=== PATIENT | female | born 1935 | race Caucasian/White ===

== ENCOUNTER 2016-02-21 15:17 | Emergency (ER) | payer MEDICARE ==
[2016-02-21 15:43] LABS: #Basophils 0.2 thou/uL (0.0-0.2); #Eosinphils 0.1 thou/uL (0.0-0.7); #Lymphocytes 2.9 thou/uL (1.20-3.40); #Monocytes 1.1 thou/uL (0.11-0.59); #Neutrophils 8.4 thou/uL (1.40-6.50); %Basophils 1.5 % (0.0-1.0); %Eosinophils 0.6 % (0.0-10.0); %Monocytes 8.4 % (0.0-10.0); Hematocrit 45.6 % (36.0-47.0); Mean Platelet Volume 7.4 fL (7.4-10.4); Red Blood Cell (RBC) Count 4.64 mill/uL (4.20-5.40); White Blood Cell (WBC) Count 12.6 thou/uL (4.8-10.8)
[2016-02-21] MEDS ORDERED: methylPREDNISolone Sod Succ/PF 125 MG/2 ML VIAL ONE (15:50)
[2016-02-21 15:52] LABS: ALT (SGPT) 25 U/L (0-55); AST (SGOT) 22 U/L (5-34); Alkaline Phosphatase 99 U/L (40-150); Anion Gap 14 mmol/L (10-20); BUN (Urea Nitrogen) 13 mg/dL (9.8-20.1); Bilirubin, Total 0.3 mg/dL (0.2-1.2); Calc. Creatinine Clearance 0 mL/min (70-130); Calcium 9.8 mg/dL (7.8-10.44); Carbon Dioxide 27 mmol/L (23-31); Chloride 102 mmol/L (98-107); Estimated GFR-MDRD 66; Globulin 2.8 g/dL (2.4-3.5); Protein, Total 7.4 g/dL (5.8-8.1)
[2016-02-21 15:57] LABS: Troponin I Less than 0.010 ng/mL (< 0.028)
[2016-02-21 16:08] LABS: PTT 27.9 SEC (22.9-36.1)
[2016-02-21 16:09] LABS: Prothrombin Time 11.5 SEC (12.0-14.7)
--- NOTE | 2016-02-21 16:35 | RAD ---
PORTABLE CHEST: Date: 02-21-16 An AP portable film at 1528 is compared with a 07-14-15 study. FINDINGS: The lungs are clear today. No infiltrate or effusion was seen. The heart size is normal. The vasc ulature appears normal. IMPRESSION: No acute findings. POS: HOME
[2016-02-21 17:56] LABS: Troponin I Less than 0.010 ng/mL (< 0.028)
[2016-02-21 18:09] LABS: Bilirubin Negative (Negative); Blood, Urine Negative (Negative); Glucose, Urine (Dipstick) Negative (Negative); Ketone, Urine Negative (Negative); Nitrite Negative (Negative); Protein, Urine (Dipstick) Negative (Neg-Trace); Urobilinogen 0.2 mg/dL (0.2-1.0)
[2016-02-21 18:10] LABS: Bacteria/HPF None Seen HPF (None Seen); RBC/HPF None Seen HPF (0-3); Squamous Epithelial 0-3 HPF (0-3); WBC/HPF None Seen HPF (0-3)
--- NOTE | 2016-02-21 18:31 | ERRECORD ---
[facility] EMERGENCY RECORD HPI COPD (15:49 DHAM) CHIEF COMPLAINT: Patient presents for evaluation of dyspnea, Patient presents for evaluation of wheezing. HISTORIAN: History provided by patient, Pt started with increased cough and mild shortness of breath 24 hours ago. She ate quickly and went into Dr. Mane's office hoping to get an antibiotic and go home. She c/o mild chest discomfort for about 10 minutes prior to arrival so she was sent to us for further evaluation. No fever or chills just increased sputum and increased cough with this episode of chest pain prior to arriving at her pcp office. Dr. Mane did call to give us report. LOCATION: Symptoms are localized, most severe to bilat upper chest. QUALITY: Symptoms described as tightness, Symptoms described as wheezing. SEVERITY: Currently there are no symptoms. TIME COURSE: Gradual onset of symptoms, 24 hours for the increased sob and 15 minutes for the chest discomfort., Symptoms are worsening. ASSOCIATED WITH: Associated with chest pain, currently resolved, Associated with cough, productive, No associated fever, No associated increased inhaler use, Associated with upper respiratory infection, for 1 day, Associated with history of chronic obstructive pulmonary disease, I used my albuterol inhaler last night as usual but no more than usual. EXACERBATED BY: Patient's condition exacerbated by nothing. RELIEVED BY: Patient's condition relieved by nothing, Patient's condition not relieved by inhaler use, Patient's condition relieved by nothing because patient has not tried anything for relief. RISK FACTORS: No pulmonary embolism risk factors, Coronary artery disease risk factors, include high cholesterol, include hypertension, include smoking, Thoracic aortic dissection risk factors, include hypertension. ROS (15:49 DHAM) CONSTITUTIONAL: Historian denies chills, denies fever, denies malaise, denies night sweats, denies weakness. EYES: Negative eye review of systems. ENT: Negative ears, nose, throat review of systems. CARDIOVASCULAR: Historian reports chest pain, upper, no radiation, Historian denies diaphoresis, reports dyspnea on exertion, denies edema, reports exercise intolerance. no jugular venous distention, Historian denies orthopnea, denies paroxysmal nocturnal dyspnea, denies syncope, denies palpitations. RESPIRATORY: Historian reports cough, reports shortness of breath, reports sputum, reports wheezing. the sob is a bit worse as is the cough. She daily produces sputum and this hasn't really changed. GI: Negative gastrointestinal review of systems, Historian denies &a-1R&a+25V*p+0X*d6410H*c202B*c15G*c2P*p-0X&a-25V&a+1R Name: Haleigh Schuster : 1935 F80 MedRec: [id number] AcctNum: [id number] Prepared: Mary Feb 21, 2016 20:10 by Interface Page 1 of 5 pMD [facility] EMERGENCY RECORD abdominal pain. MUSCULOSKELETAL: Negative musculoskeletal review of systems. SKIN: Negative skin review of systems. NEUROLOGIC: Negative neurologic review of systems, Historian denies confusion, denies focal weakness, denies gait changes. ENDOCRINE: Negative endocrine review of systems. HEMO/LYMPHATIC: Normal hematologic/lymphatic system review. ALLERGIC/IMMUNOLOGIC: Historian reports environmental allergies, denies frequent infections. PSYCHIATRIC: Historian denies alcohol abuse, denies anxiety, denies depression. PAST MEDICAL HISTORY MEDICAL HISTORY: Past medical history includes endocrine disease, hypothyroidism, Past medical history includes history of hypertension, pulmonary disease. (15:43 ASAH) FEMALE SURGICAL HISTORY: Surgical history of hysterectomy, Surgical history of tonsillectomy. (15:44 ASAH) PSYCHIATRIC HISTORY: Psychiatric history includes, anxiety. (15:44 ASAH) SOCIAL HISTORY: Patient denies alcohol use, Patient denies drug use, Patient currently uses tobacco, smokes cigarettes, daily, Patient smokes 1.5 packs per day. (15:45 ASAH) NOTES: I have reviewed the nursing documentation regarding PMHX, social hx, family hx, and surgical history as well as vitals and triage notes and agree. (16:03 DHA) KNOWN ALLERGIES Sulfa (Sulfonamide Antibiotics) CURRENT MEDICATIONS levothyroxine: TABLET : Strength - 75 mcg : ORAL Patient Dose: 1 tab(s) Oral once a day. (15:40 LGIB) fluticasone: SPRAY, SUSPENSION : Strength - 50 mcg : NASAL Patient Dose: Unknown. (15:40 LGIB) amLODIPine: TABLET : Strength - 2.5 mg : ORAL Patient Dose: 1 tab(s) Oral once a day. (15:40 LGIB) atorvastatin: TABLET : Strength - 10 mg : ORAL Patient Dose: 1 tab(s) Oral once a day. (15:40 LGIB) carvedilol: TABLET : Strength - 6.25 mg : ORAL Patient Dose: 1 tab(s) Oral 2 times a day. (15:41 LGIB) Ventolin HFA: HFA AEROSOL WITH ADAPTER (GRAM) : Strength - 90 mcg : INHALATION &a-1R&a+25V*p+0X*r3518V*c202B*c15G*c2P*p-0X&a-25V&a+1R Name: Haleigh Schuster : 1935 F80 MedRec: [id number] AcctNum: [id number] Prepared: Mary Feb 21, 2016 20:10 by Interface Page 2 of 5 pMD [facility] EMERGENCY RECORD Patient Dose: 2 puff(s) Inhaler As Needed. (15:41 LGIB) Budeprion SR: TABLET, EXTENDED RELEASE : Strength - 150 mg : ORAL Patient Dose: 1 tab(s) Oral 2 times a day. (15:42 LGIB) VITAL SIGNS VITAL SIGNS: BP: 144/99, Pulse: 77, Resp: 22, Pain: 0, O2 sat: 95 on Room Air, Time: 02/21/2016 15:30. (15:30 LGIB) Temp: 98.2 (Oral), Time: 02/21/2016 15:35. (15:35 LGIB) BP: 188/87, Pulse: 60, Resp: 20 (Non-Labored), Pain: 0, O2 sat: 96 on Room Air, Time: 02/21/2016 16:42. (16:42 LGIB) BP: 173/96, Pulse: 64, Resp: 22, Time: 02/21/2016 16:59. (16:59 ASAH) PHYSICAL EXAM (15:49 DHAM) CONSTITUTIONAL: Vital Signs Reviewed, Patient afebrile, Pulse normal, Blood pressure normal, Respiratory rate normal, Normal pulse oximetry, Patient appears non toxic, Patient appears pain free, Patient alert and oriented to person, place and time, Nursing notes reviewed. HEAD: Head exam normal, Head exam included findings of head atraumatic. EYES: Eye exam included findings of eyelids normal to inspection, Pupils equally round and reactive to light, Extraocular muscles intact, Conjunctiva normal. ENT: Ear exam normal, external ear normal, tympanic membranes normal, no drainage, Nose exam normal, no nasal deformity, no nasal congestion or rhinorrhea, Pharynx exam normal, Uvula exam normal, Tonsil exam normal, teeth normal. NECK: Neck exam normal, Neck exam included findings of normal range of motion, Thyroid normal, no jugular venous distention, no cervical adenopathy. RESPIRATORY CHEST: Respiratory exam included findings of no respiratory distress, Wheezing present, diffusely, No rales, No rhonchi, Breath sounds diminished, Chest exam included findings of chest movement symmetrical, Chest expansion equal, no tenderness, wheezing is only heard with forced expiration and breath sounds are diffusely decreased and she has a prolonged expiratory phase. CARDIOVASCULAR: Cardiovascular exam included findings of heart rate regular rate and rhythm, Heart sounds normal, Point of maximal impulse normal. ABDOMEN MALE: Abdominal exam included findings of abdomen nontender, Bowel sounds normal, Liver normal, Spleen normal, no distension, no mass, no peritoneal signs. UPPER EXTREMITY: Upper extremity exam normal, Radial pulse normal. LOWER EXTREMITY: Lower extremity exam included findings of inspection normal, Range of motion normal, Motor strength normal, Sensation intact, Pedal pulse normal, Easton's negative, no edema, no calf tenderness, no palpable cords. &a-1R&a+25V*p+0X*[id number]*c202B*c15G*c2P*p-0X&a-25V&a+1R Name: Haleigh Schuster : 1935 F80 MedRec: [id number] AcctNum: [id number] Prepared: Mary Feb 21, 2016 20:10 by Interface Page 3 of 5 pMD [facility] EMERGENCY RECORD NEURO: [place] coma scale 15, Neuro exam findings include patient oriented to person, place and time, Speech normal, Gait normal, Cranial nerves intact. SKIN: Skin exam included findings of skin warm, dry, and normal in color, no rash. PSYCHIATRIC: Psychiatric exam included findings of patient oriented to person place and time, Normal affect, Judgment normal, Insight normal. EKG INTERPRETATION (15:31 DHAM) 12 LEAD EKG INTERPRETATION: 12 lead EKG interpreted by Emergency Department Physician at time of study, 12 lead EKG shows normal sinus rhythm, Rate (beats per minute): 67, with no ectopics, No previous EKG available for comparison, Conduction with, incomplete right bundle branch block, ST segments normal, T waves normal, [place] normal. RADIOLOGYINTERPRETATION (15:49 DHAM) CHEST: Chest films negative, no infiltrates, no pneumothorax, no hemothorax, no masses, no cardiomegaly, no congestive heart failure, no effusion, no free air, flattened diaphragms bilat. MEDICATION ADMINISTRATION SUMMARY Drug Name: DuoNeb, Dose Ordered: 3 mL, Route: Nebulize, Status: Given, Time: 15:59 02/21/2016, Drug Name: Solu-MEDROL intravenous, Dose Ordered: 125 mg, Route: IV Push, Status: Given, Time: 15:59 02/21/2016, Detailed record available in Medication Service section. DOCTOR NOTES TEXT: Pt has had no further cp and feels comfortable that she just has a cold wants an antibiotic and to go home. see [facility]. (18:02 DHAM) wells is 0 and heart score is 4. will have her follow up quickly with her pcp. see [facility]. (18:07 DHAM) PROBLEM LIST No recorded problems DIAGNOSIS (18:04 DHAM) FINAL: PRIMARY: copd exacerbation, ADDITIONAL: atypical chest pain. PRESCRIPTION (18:04 DHAM) Augmentin: TABLET : 875 mg-125 mg : ORAL : Quantity: 1 Unit: tab(s) Route: ORAL Schedule: 2 times a day (with meals) Dispense: 20 Unit: tab(s) May substitute. Refills: No Refills . NOTES: No refills. &a-1R&a+25V*p+0X*x1384Y*c202B*c15G*c2P*p-0X&a-25V&a+1R Name: Haleigh Schuster : 1935 F80 MedRec: [id number] AcctNum: [id number] Prepared: SatFeb 21, 2016 20:10 by Interface Page 4 of 5 pMD [facility] EMERGENCY RECORD predniSONE oral: TABLET : 20 mg : ORAL : Quantity: 2 Unit: tab(s) Route: ORAL Schedule: once a day (after a meal) Dispense: 10 Unit: tab(s) May substitute. Refills: No Refills . NOTES: 2 each day for 5 days No refills. DISPOSITION PATIENT: Disposition Type: Discharge, Disposition: *Discharge Home. (18:04 [facility]) Patient left the department. (18:24 [facility]) Sanchez: [facility]=KACIE Carias, May [facility]=MD Xenia, Julito [facility]=KACIE Gonzales, Iza &a-1R&a+25V*p+0X*r1209F*c202B*c15G*c2P*p-0X&a-25V&a+1R Name: Haleigh Schuster : 1935 F80 MedRec: [id number] AcctNum: [id number] Prepared: Mary Feb 21, 2016 20:10 by Interface Page 5 of 5 pMD [facility]TDD
--- NOTE | 2016-02-21 18:35 | PICIS ---
[facility] EMERGENCY RECORD TRIAGE (SatFeb 21, 2016 15:19 LGIB) PATIENT: NAME: Haleigh Schuster, AGE: 80, GENDER: female, : Sat1935, TIME OF GREET: SatFeb 21, 2016 15:18, PREFERRED LANGUAGE: [place], ETHNICITY: Not or , ECODE BILLING MAP: [facility], SSN: [id number], Zip Code: [address], KG WEIGHT: 49.90, PHONE: , , , PERSON ID: [id number], PAYMENT: [employer], PCP: MD Mane Kyle. (SatFeb 21, 2016 15:19 LGIB) COMPLAINT: SOB, CP. (SatFeb 21, 2016 15:19 LGIB) ADMISSION: URGENCY: 2 Emergent, ADMISSION SOURCE: Doctor's Office, TRANSPORT: CAR, BED: ER -02. (SatFeb 21, 2016 15:19 LGIB) ASSESSMENT: Assessment: pt sent from Dr. Mane office for SOB for the past week. while at office had an acute onset of chest pain. (15:34 ASAH) PAIN: No complaint of pain. (15:34 ASAH) IMMUNIZATIONS: Flu vaccine not up to date, Tetanus not up to date, Pneumococcal vaccine not up to date. (15:34 ASAH) SIRS SCORING: Heart Rate 55-109 (0), Temp range 96.8-101.1 (0), respiratory rate 12-24 (0), Mental status altered: yes (1), Infection or Suspected Infection: No. (15:34 ASAH) TRIAGE SCREENING: Patient denies suicidal ideation, Patient denies presence of domestic violence. (15:43 ASAH) LMP: LMP: Hysterectomy. (15:34 ASAH) PROVIDERS: TRIAGE NURSE: Iza Gonzales RN. (SatFeb 21, 2016 15:19 LGIB) KNOWN ALLERGIES Sulfa (Sulfonamide Antibiotics) CURRENT MEDICATIONS levothyroxine: TABLET : Strength - 75 mcg : ORAL Patient Dose: 1 tab(s) Oral once a day. (15:40 LGIB) fluticasone: SPRAY, SUSPENSION : Strength - 50 mcg : NASAL Patient Dose: Unknown. (15:40 LGIB) amLODIPine: TABLET : Strength - 2.5 mg : ORAL Patient Dose: 1 tab(s) Oral once a day. (15:40 LGIB) atorvastatin: TABLET : Strength - 10 mg : ORAL Patient Dose: 1 tab(s) Oral once a day. (15:40 LGIB) carvedilol: TABLET : Strength - 6.25 mg : ORAL Patient Dose: 1 tab(s) Oral 2 times a day. (15:41 LGIB) Ventolin HFA: HFA AEROSOL WITH ADAPTER (GRAM) : Strength - 90 mcg : INHALATION Patient Dose: 2 puff(s) Inhaler As Needed. (15:41 LGIB) &a-1R&a+25V*p+0X*p6278J*c202B*c15G*c2P*p-0X&a-25V&a+1R Name: Haleigh Schuster : 1935 F80 MedRec: [id number] AcctNum: [id number] Prepared: Mary Feb 21, 2016 20:10 by Interface Page 1 of 12 pMD [facility] EMERGENCY RECORD Budeprion SR: TABLET, EXTENDED RELEASE : Strength - 150 mg : ORAL Patient Dose: 1 tab(s) Oral 2 times a day. (15:42 LGIB) VITAL SIGNS VITAL SIGNS: BP: 144/99, Pulse: 77, Resp: 22, Pain: 0, O2 sat: 95 on Room Air, Time: 02/21/2016 15:30. (15:30 LGIB) Temp: 98.2 (Oral), Time: 02/21/2016 15:35. (15:35 LGIB) BP: 188/87, Pulse: 60, Resp: 20 (Non-Labored), Pain: 0, O2 sat: 96 on Room Air, Time: 02/21/2016 16:42. (16:42 LGIB) BP: 173/96, Pulse: 64, Resp: 22, Time: 02/21/2016 16:59. 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 PT WAS AT HER PCP OFFICE AND WAS SENT TO ER FOR EVALUATION. NAD, RR EVEN AND UNLABORED. PAIN: pressure pain, Patient rates pain as 0 out of 10, Pain exacerbated by nothing, Nothing has been tried to alleviate the pain. RESPIRATORY/CHEST: Breath sounds clear, Respiratory assessment findings include respiratory effort easy, Respirations regular, Conversing normally, Neck and chest exam findings include trachea midline, Chest expansion equal, Chest movement symmetrical, no signs of distress, no retractions noted, no cyanosis, no associated cough noted, no associated fever. SAFETY: Side rails up, Cart/Stretcher in lowest position, Call light within reach, Hospital ID band on. NURSING PROCEDURE: BEDSIDE RADIOLOGY (15:31 LG) BEDSIDE RADIOLOGY: Portable chest x-ray performed. NURSING PROCEDURE: DISCHARGE NOTE (18:23 ASA) DISCHARGE: Patient discharged to home, ambulating without assistance, driving self, unaccompanied, Summary of Care printed/ provided, Discharge instructions given to patient, Simple or moderate discharge teaching performed, by wes rn, Prescriptions given and instructions on side effects given, Name of prescription(s) given: prednisone and augmentin, Above person(s) verbalized understanding of discharge instructions and follow-up care. NURSING PROCEDURE: EKG CHART (15:23 [facility]) PATIENT IDENTIFIER: Patient actively involved in identification process, Patient's identity verified by patient stating name, Patient's identity verified by patient stating date, Patient's &a-1R&a+25V*p+0X*u4859Y*c202B*c15G*c2P*p-0X&a-25V&a+1R Name: Haleigh Schuster : 1935 F80 MedRec: [id number] AcctNum: [id number] Prepared: SatFeb 21, 2016 20:10 by Interface Page 2 of 12 pMD [facility] EMERGENCY RECORD identity verified by hospital ID bracelet. EKG: EKG indicated for complaint of chest pain. FOLLOW-UP: After procedure, EKG for interpretation given to Dr. Michaels. SAFETY: Side rails up, Cart/Stretcher in lowest position, Call light within reach, Hospital ID band on. NURSING PROCEDURE: IV IV SITE 1: IV therapy indicated for medication administration, IV established, to the left wrist, using an 18 gauge catheter, in one attempt, Saline lock established, Flushed with normal saline (mls): 10, Labs drawn at time of placement, labeled in the presence of the patient and sent to lab. (15:25 LGIB) NOTES: Notes: IV d/c. area dressed with 4x4 and coban. bleeding controlled. (18:21 ASAH) NURSING PROCEDURE: NURSE NOTES NURSES NOTES: Notes: pt resting, NAD, RR even and unlabored. awaiting lab draw at 1730. (17:00 LGIB) VITAL SIGNS: BP: 173, / 96, Pulse: 64, Resp: 22. (16:59 ASAH) ORDER DETAILS Order Name: B type Natriuretic Peptide, Status: Active, Time: 15:29 02/21/2016, User: ISRAEL, - Ordered for: MD Michaels Darren, - Entered by: MD Michaels Darren - Tue Feb 21, 2016 15:29, - Quantity: 1, Order Name: PHYSICIAN'S AIDE ED, Status: Done, Time: 15:30 02/21/2016, User: CAROL, - Ordered for: MD Michaels Darren, - Entered by: MD Michaels Darren - Tue Feb 21, 2016 15:29, - Quantity: 1, Order Name: Cardiac Profile w/CKMB & Troponin - I, Status: Active, Time: 15:29 02/21/2016, User: ISRAEL, - Ordered for: MD Michaels Darren, - Entered by: MD Michaels Darren - Tue Feb 21, 2016 15:29, - Quantity: 1, Order Name: CBC with Differential, Status: Active, Time: 15:29 02/21/2016, User: ISRAEL, - Ordered for: MD Michaels Darren, - Entered by: MD Michaels Darren - Tue Feb 21, 2016 15:29, - Quantity: 1, Order Name: Comprehensive Metabolic Panel, Status: Active, Time: 15:29 02/21/2016, User: ISRAEL, - Ordered for: MD Michaels Darren, - Entered by: MD Michaels Darren - Tue Feb 21, 2016 15:29, - Quantity: 1, Order Name: D-Dimer (Quantitative), Status: Active, Time: 15:29 02/21/2016, User: ISRAEL, &a-1R&a+25V*p+0X*w5365W*c202B*c15G*c2P*p-0X&a-25V&a+1R Name: Haleigh Schuster : 1935 F80 MedRec: [id number] AcctNum: [id number] Prepared: SatFeb 21, 2016 20:10 by Interface Page 3 of 12 pMD [facility] EMERGENCY RECORD - Ordered for: MD Michaels Darren, - Entered by: MD Michaels Darren - Tue Feb 21, 2016 15:29, - Quantity: 1, Order Name: EKG 12 Lead in Emergency Room, Status: Active, Time: 15:29 02/21/2016, User: ISRAEL, - Ordered for: MD Michaels Darren, - Entered by: MD Michaels Darren - Tue Feb 21, 2016 15:29, - Quantity: 1, Order Name: ERRT * Smal Vol Neb Initial Trmt, Status: Active, Time: 15:50 02/21/2016, User: ISRAEL, - Ordered for: MD Michaels Darren, - Entered by: MD Michaels Darren - Tue Feb 21, 2016 15:50, - Quantity: 1, Order Name: ERRT Pulse Oximeter ER, Status: Active, Time: 15:29 02/21/2016, User: ISRAEL, - Ordered for: MD Michaels Darren, - Entered by: MD Michaels Darren - Tue Feb 21, 2016 15:29, - Quantity: 1, Order Name: Protime with INR, Status: Active, Time: 15:29 02/21/2016, User: ISRAEL, - Ordered for: MD Michaels Darren, - Entered by: MD Michaels Darren - Tue Feb 21, 2016 15:29, - Quantity: 1, Order Name: PTT, Status: Active, Time: 15:29 02/21/2016, User: ISRAEL, - Ordered for: MD Michaels Darren, - Entered by: MD Michaels Darren - Tue Feb 21, 2016 15:29, - Quantity: 1, Order Name: SALINE LOCK, Status: Done, Time: 15:31 02/21/2016, User: CAROL, - Ordered for: MD Michaels Darren, - Entered by: MD Michaels Darren - Tue Feb 21, 2016 15:29, - Quantity: 1, Order Name: Troponin - I, Status: Active, Time: 16:54 02/21/2016, User: ISRAEL, - Ordered for: MD Michaels Darren, - Entered by: MD Michaels Darren - Tue Feb 21, 2016 16:54, - Quantity: 1, Order Name: Urinalysis with Microscopic, Status: Active, Time: 15:29 02/21/2016, User: ISRAEL, - Ordered for: MD Michaels Darren, - Entered by: MD Michaels Darren - Tue Feb 21, 2016 15:29, - Quantity: 1, Order Name: XR Chest 1 View Portable, Status: Active, Time: 15:29 02/21/2016, User: ISRAEL, - Ordered for: MD Michaels Darren, - Entered by: MD Michaels Darren - Tue Feb 21, 2016 15:29, - Quantity: 1. MEDICATION ADMINISTRATION SUMMARY &a-1R&a+25V*p+0X*m4365X*c202B*c15G*c2P*p-0X&a-25V&a+1R Name: Haleigh Schuster : 1935 F80 MedRec: [id number] AcctNum: [id number] Prepared: SatFeb 21, 2016 20:10 by Interface Page 4 of 12 pMD [facility] EMERGENCY RECORD Drug Name: DuoNeb, Dose Ordered: 3 mL, Route: Nebulize, Status: Given, Time: 15:59 02/21/2016, Drug Name: Solu-MEDROL intravenous, Dose Ordered: 125 mg, Route: IV Push, Status: Given, Time: 15:59 02/21/2016, Detailed record available in Medication Service section. MEDICATION SERVICE DuoNeb: Order: DuoNeb (ipratropium bromide/albuterol sulfate) - Dose: 3 mL : Nebulize Schedule: Now Ordered by: Julito Michaels MD Entered by: Julito Michaels MD SatFeb 21, 2016 15:49 , Acknowledged by: Wes Carias RN SatFeb 21, 2016 15:59 Documented as given by: Wes Carias RN SatFeb 21, 2016 15:59 Patient, Medication, Dose, Route and Time verified prior to administration. Amount given: 3ml, Amount wasted: 0, Site: Medication administered via Hand-held nebulizer, With oxygen, Correct patient, time, route, dose and medication confirmed prior to administration, Patient advised of actions and side-effects prior to administration, Allergies confirmed and medications reviewed prior to administration, Patient in position of comfort, Side rails up, Cart in lowest position. : Follow Up : No signs or symptoms of allergic reaction noted, Decreased symptoms. (16:47 ASA) Solu-MEDROL intravenous: Order: Solu-MEDROL intravenous (methylprednisolone sod succ) - Dose: 125 mg : IV Push Schedule: Now Ordered by: Julito Michaels MD Entered by: Julito Michaels MD SatFeb 21, 2016 15:50 , Acknowledged by: Wes Carias RN SatFeb 21, 2016 15:59 Documented as given by: Wes Carias RN SatFeb 21, 2016 15:59 Patient, Medication, Dose, Route and Time verified prior to administration. Amount given: 125mg, Amount wasted: 0, IV SITE #1 IVP, initial medication, Slowly, Catheter placement confirmed via flush prior to administration, IV site without signs or symptoms of infiltration during medication administration, No swelling during administration, No drainage during administration, IV flushed after administration, Correct patient, time, route, dose and medication confirmed prior to administration, Patient advised of actions and side-effects prior to administration, Allergies confirmed and medications reviewed prior to administration, Patient in position of comfort, Side rails up, Cart in lowest position. : Follow Up : No signs or symptoms of allergic reaction noted, _IV SITE #1:_. (16:48 ASA) HPI COPD (15:49 DHA) CHIEF COMPLAINT: Patient presents for evaluation of dyspnea, Patient presents for evaluation of wheezing. &a-1R&a+25V*p+0X*a8508V*c202B*c15G*c2P*p-0X&a-25V&a+1R Name: Haleigh Schuster : 1935 F80 MedRec: [id number] AcctNum: [id number] Prepared: Mary Feb 21, 2016 20:10 by Interface Page 5 of 12 pMD [facility] EMERGENCY RECORD HISTORIAN: History provided by patient, Pt started with increased cough and mild shortness of breath 24 hours ago. She ate quickly and went into Dr. Mane's office hoping to get an antibiotic and go home. She c/o mild chest discomfort for about 10 minutes prior to arrival so she was sent to us for further evaluation. No fever or chills just increased sputum and increased cough with this episode of chest pain prior to arriving at her pcp office. Dr. Mane did call to give us report. LOCATION: Symptoms are localized, most severe to bilat upper chest. QUALITY: Symptoms described as tightness, Symptoms described as wheezing. SEVERITY: Currently there are no symptoms. TIME COURSE: Gradual onset of symptoms, 24 hours for the increased sob and 15 minutes for the chest discomfort., Symptoms are worsening. ASSOCIATED WITH: Associated with chest pain, currently resolved, Associated with cough, productive, No associated fever, No associated increased inhaler use, Associated with upper respiratory infection, for 1 day, Associated with history of chronic obstructive pulmonary disease, I used my albuterol inhaler last night as usual but no more than usual. EXACERBATED BY: Patient's condition exacerbated by nothing. RELIEVED BY: Patient's condition relieved by nothing, Patient's condition not relieved by inhaler use, Patient's condition relieved by nothing because patient has not tried anything for relief. RISK FACTORS: No pulmonary embolism risk factors, Coronary artery disease risk factors, include high cholesterol, include hypertension, include smoking, Thoracic aortic dissection risk factors, include hypertension. ROS (15:49 DHAM) CONSTITUTIONAL: Historian denies chills, denies fever, denies malaise, denies night sweats, denies weakness. EYES: Negative eye review of systems. ENT: Negative ears, nose, throat review of systems. CARDIOVASCULAR: Historian reports chest pain, upper, no radiation, Historian denies diaphoresis, reports dyspnea on exertion, denies edema, reports exercise intolerance. no jugular venous distention, Historian denies orthopnea, denies paroxysmal nocturnal dyspnea, denies syncope, denies palpitations. RESPIRATORY: Historian reports cough, reports shortness of breath, reports sputum, reports wheezing. the sob is a bit worse as is the cough. She daily produces sputum and this hasn't really changed. GI: Negative gastrointestinal review of systems, Historian denies abdominal pain. MUSCULOSKELETAL: Negative musculoskeletal review of systems. SKIN: Negative skin review of systems. &a-1R&a+25V*p+0X*o1058R*c202B*c15G*c2P*p-0X&a-25V&a+1R Name: Haleigh Schuster : 1935 F80 MedRec: [id number] AcctNum: [id number] Prepared: Mary Feb 21, 2016 20:10 by Interface Page 6 of 12 pMD [facility] EMERGENCY RECORD NEUROLOGIC: Negative neurologic review of systems, Historian denies confusion, denies focal weakness, denies gait changes. ENDOCRINE: Negative endocrine review of systems. HEMO/LYMPHATIC: Normal hematologic/lymphatic system review. ALLERGIC/IMMUNOLOGIC: Historian reports environmental allergies, denies frequent infections. PSYCHIATRIC: Historian denies alcohol abuse, denies anxiety, denies depression. PAST MEDICAL HISTORY MEDICAL HISTORY: Past medical history includes endocrine disease, hypothyroidism, Past medical history includes history of hypertension, pulmonary disease. (15:43 ASAH) FEMALE SURGICAL HISTORY: Surgical history of hysterectomy, Surgical history of tonsillectomy. (15:44 ASAH) PSYCHIATRIC HISTORY: Psychiatric history includes, anxiety. (15:44 ASAH) SOCIAL HISTORY: Patient denies alcohol use, Patient denies drug use, Patient currently uses tobacco, smokes cigarettes, daily, Patient smokes 1.5 packs per day. (15:45 ASAH) NOTES: I have reviewed the nursing documentation regarding PMHX, social hx, family hx, and surgical history as well as vitals and triage notes and agree. (16:03 DHAM) PHYSICAL EXAM (15:49 DHAM) CONSTITUTIONAL: Vital Signs Reviewed, Patient afebrile, Pulse normal, Blood pressure normal, Respiratory rate normal, Normal pulse oximetry, Patient appears non toxic, Patient appears pain free, Patient alert and oriented to person, place and time, Nursing notes reviewed. HEAD: Head exam normal, Head exam included findings of head atraumatic. EYES: Eye exam included findings of eyelids normal to inspection, Pupils equally round and reactive to light, Extraocular muscles intact, Conjunctiva normal. ENT: Ear exam normal, external ear normal, tympanic membranes normal, no drainage, Nose exam normal, no nasal deformity, no nasal congestion or rhinorrhea, Pharynx exam normal, Uvula exam normal, Tonsil exam normal, teeth normal. NECK: Neck exam normal, Neck exam included findings of normal range of motion, Thyroid normal, no jugular venous distention, no cervical adenopathy. RESPIRATORY CHEST: Respiratory exam included findings of no respiratory distress, Wheezing present, diffusely, No rales, No rhonchi, Breath sounds diminished, Chest exam included findings of chest movement symmetrical, Chest expansion equal, no tenderness, wheezing is only heard with forced expiration and breath sounds are diffusely &a-1R&a+25V*p+0X*q4030A*c202B*c15G*c2P*p-0X&a-25V&a+1R Name: Haleigh Schuster : 1935 F80 MedRec: [id number] AcctNum: [id number] Prepared: Mary Feb 21, 2016 20:10 by Interface Page 7 of 12 pMD [facility] EMERGENCY RECORD decreased and she has a prolonged expiratory phase. CARDIOVASCULAR: Cardiovascular exam included findings of heart rate regular rate and rhythm, Heart sounds normal, Point of maximal impulse normal. ABDOMEN MALE: Abdominal exam included findings of abdomen nontender, Bowel sounds normal, Liver normal, Spleen normal, no distension, no mass, no peritoneal signs. UPPER EXTREMITY: Upper extremity exam normal, Radial pulse normal. LOWER EXTREMITY: Lower extremity exam included findings of inspection normal, Range of motion normal, Motor strength normal, Sensation intact, Pedal pulse normal, Easton's negative, no edema, no calf tenderness, no palpable cords. NEURO: Ezra coma scale 15, Neuro exam findings include patient oriented to person, place and time, Speech normal, Gait normal, Cranial nerves intact. SKIN: Skin exam included findings of skin warm, dry, and normal in color, no rash. PSYCHIATRIC: Psychiatric exam included findings of patient oriented to person place and time, Normal affect, Judgment normal, Insight normal. EVENTS TRANSFER: Triage to Emergency Emergency Room -02. (SatFeb 21, 2016 15:19 LGIB) Removed from Emergency Emergency Room -02. (18:24 [facility]) RADIOLOGYINTERPRETATION (15:49 DHAM) CHEST: Chest films negative, no infiltrates, no pneumothorax, no hemothorax, no masses, no cardiomegaly, no congestive heart failure, no effusion, no free air, flattened diaphragms bilat. EKG INTERPRETATION (15:31 DHAM) 12 LEAD EKG INTERPRETATION: 12 lead EKG interpreted by Emergency Department Physician at time of study, 12 lead EKG shows normal sinus rhythm, Rate (beats per minute): 67, with no ectopics, No previous EKG available for comparison, Conduction with, incomplete right bundle branch block, ST segments normal, T waves normal, Loiza normal. O2SAT INTERPRETATION (16:00 DHAM) O2SAT: Single pulse oximetry, Oxygen saturation 95%, on room air, Oxygen saturation interpretation: Normal, No intervention required. DOCTOR NOTES TEXT: Pt has had no further cp and feels comfortable that she just has a cold wants an antibiotic and to go home. see [facility]. (18:02 DHAM) wells is 0 and heart score is 4. will have her follow up quickly with her pcp. see [facility]. (18:07 DHAM) &a-1R&a+25V*p+0X*b9580I*c202B*c15G*c2P*p-0X&a-25V&a+1R Name: Haleigh Schuster : 1935 F80 MedRec: [id number] AcctNum: [id number] Prepared: SatFeb 21, 2016 20:10 by Interface Page 8 of 12 pMD [facility] EMERGENCY RECORD PROBLEM LIST No recorded problems DIAGNOSIS (18:04 DHAM) FINAL: PRIMARY: copd exacerbation, ADDITIONAL: atypical chest pain. DISPOSITION PATIENT: Disposition Type: Discharge, Disposition: *Discharge Home. (18:04 DHAM) Patient left the department. (18:24 [facility]) INSTRUCTION (18:07 DHAM) DISCHARGE: COPD FLARE. FOLLOWUP: MD Antonietta, Andrés, [facility], [address] [place], [place] [id number], . SPECIAL: prednisone 20mg - 2 daily for 5 days Start Augmentin one twice a day for 10 days Use your Albuterol inhaler 4 times a day at least for the next 5 days or so. Return for fevers, shortness of breath, or any other concerns. Afrin 12 hour nasal spray each nostril at bedtime for nasal congestion. See Dr. Mane to consider further cardiac workup. PRESCRIPTION (18:04 DHA) Augmentin: TABLET : 875 mg-125 mg : ORAL : Quantity: 1 Unit: tab(s) Route: ORAL Schedule: 2 times a day (with meals) Dispense: 20 Unit: tab(s) May substitute. Refills: No Refills . NOTES: No refills. predniSONE oral: TABLET : 20 mg : ORAL : Quantity: 2 Unit: tab(s) Route: ORAL Schedule: once a day (after a meal) Dispense: 10 Unit: tab(s) May substitute. Refills: No Refills . NOTES: 2 each day for 5 days No refills. IMAGING *EKG: Image captured from scanner. (15:24 ASA) *DISCHARGE INSTRUCTIONS RECEIPT: Image captured from scanner. (18:22 ASA) *SUPPLY CHARGE SHEET: Image captured from scanner. (18:23 ASA) ADMIN DIGITAL SIGNATURE: KACIE Carias, May. (18:22 ASA) KACIE Carias, May. (18:24 ASA) MD Michaels Darren. (20:00 [facility]) &a-1R&a+25V*p+0X*y1744R*c202B*c15G*c2P*p-0X&a-25V&a+1R Name: Haleigh Schuster : 1935 F80 MedRec: [id number] AcctNum: [id number] Prepared: SatFeb 21, 2016 20:10 by Interface Page 9 of 12 pMD [facility] EMERGENCY RECORD RESULTS LABORATORY: Cardiac Profile w/CKMB & TropI Collection DT: SatFeb 21, 2016 15:37, CKMB 1.3 ng/mL, Range (0-6.6), Troponin I Less than 0.010 ng/mL, Range (< 0.028), Reference Range , 0.00 - 0.028 ng/mL Negative 0.029 - 0.29 ng/mL , Indeterminate Greater or Equal to 0.3 ng/mL Strongly suggests ND , . (16:01 [facility]) Comprehensive Metabolic Panel Collection DT: SatFeb 21, 2016 15:37, Sodium 139 mmol/L, Range (136-145), Potassium 3.8 mmol/L, Range (3.5-5.1), Chloride 102 mmol/L, Range (98-107), Carbon Dioxide 27 mmol/L, Range (23-31), Anion Gap 14 mmol/L, Range (10-20), BUN (Urea Nitrogen) 13 mg/dL, Range (9.8-20.1), Creatinine 0.84 mg/dL, Range (0.6-1.1), Estimated GFR-MDRD 66 , Reference Range for Estimated GFR: Greater than 90, mL/min/1.73 m2 NOTE: The MDRD equation has not been validated for use, with the elderly (over 70 years of age), women, patients with, serious comorbid condition or persons with extremes of body size, muscle, mass, or nutritional status. , *Glucose 124 - H mg/dL, Range (83-110), Calcium 9.8 mg/dL, Range (7.8-10.44), Bilirubin, Total 0.3 mg/dL, Range (0.2-1.2), Protein, Total 7.4 g/dL, Range (5.8-8.1), NOTE: Plasma values are generally 0.3 to 0.5 g/dL higher than serum values, due to the presence of fibrinogen. , Albumin 4.6 g/dL, Range (3.4-4.8), Globulin 2.8 g/dL, Range (2.4-3.5), Alb/Glob Ratio 1.6 g/dL, Range (1.2-2.2), Alkaline Phosphatase 99 U/L, Range (40-150), AST (SGOT) 22 U/L, Range (5-34), ALT (SGPT) 25 U/L, Range (0-55). (16:01 [facility]) CBC with Differential Collection DT: SatFeb 21, 2016 15:37, *White Blood Cell (WBC) Count 12.6 - H thou/uL, Range (4.8-10.8), Red Blood Cell (RBC) Count 4.64 mill/uL, Range (4.20-5.40), Hemoglobin 15.0 g/dL, Range (12.0-16.0), Hematocrit 45.6 %, Range (36.0-47.0), Mean Corpuscular Volume 98.3 fl, Range (81.0-99.0), *Mean Corpuscular Hemoglobin 32.5 - H pg, Range (27.0-31.0), Mean Corpuscular HGB CONC 33.0 g/dL, Range (32.0-36.0), RBC Distribution Width 11.6 %, Range (11.5-14.5), Platelet Count 267 thou/uL, Range (130-400), &a-1R&a+25V*p+0X*l3299F*c202B*c15G*c2P*p-0X&a-25V&a+1R Name: Haleigh Schuster : 1935 F80 MedRec: [id number] AcctNum: [id number] Prepared: SatFeb 21, 2016 20:10 by Interface Page 10 of 12 pMD [facility] EMERGENCY RECORD Mean Platelet Volume 7.4 fL, Range (7.4-10.4), %Neutrophils 66.6 %, Range (42.0-75.0), %Lymphocytes 22.8 %, Range (21.0-51.0), %Monocytes 8.4 %, Range (0.0-10.0), %Eosinophils 0.6 %, Range (0.0-10.0), *%Basophils 1.5 - H %, Range (0.0-1.0), *#Neutrophils 8.4 - H thou/uL, Range (1.40-6.50), #Lymphocytes 2.9 thou/uL, Range (1.20-3.40), *#Monocytes 1.1 - H thou/uL, Range (0.11-0.59), #Eosinphils 0.1 thou/uL, Range (0.0-0.7), #Basophils 0.2 thou/uL, Range (0.0-0.2). (16:01 [facility]) B type Natriuretic Peptide Collection DT: SatFeb 21, 2016 15:37, B type Natriuretic Peptide 52.1 pg/mL, Range (0-100). (16:16 [facility]) D-Dimer (Quantitative) Collection DT: SatFeb 21, 2016 15:37, See comment below , Anticoagulant? NONE Medical Necessity SUSPECT COAGULOPATHY , D-Dimer Test 0.27 *mcg/mL, Range (0.27-0.43), * Reference Range Units: mcg/mL of fibrinogen equivalent, units(FEU) Based upon a retrospective study of [facility] patients in June 2005, a result of Less than 0.44 mcg/mL FEU is, predictive of the absence of a DVT or PE. . (16:25 [facility]) PTT Collection DT: SatFeb 21, 2016 15:37, See comment below , Anticoagulant? NONE Medical Necessity SUSPECT COAGULOPATHY , PTT 27.9 SEC, Range (22.9-36.1). (16:25 [facility]) Protime with INR Collection DT: SatFeb 21, 2016 15:37, See comment below , Anticoagulant? NONE Medical Necessity SUSPECT COAGULOPATHY , *Prothrombin Time 11.5 - L SEC, Range (12.0-14.7), INR-International Normal Ratio 0.8 , ATTENTION: READ CAREFULLY , The, recommended therapeutic ranges for oral anticoagulant treatments are: , , Low Intensity: 1.5 - 2.0 Moderate Intensity: 2.0, - 3.0 High Intensity (1): 2.5 - 3.5 High, Intensity (2): 3.0 - 4.0 CRITICAL: >, 4.0 . (16:25 [facility]) Troponin - I Collection DT: SatFeb 21, 2016 17:56, See comment below , Comment please draw at 1730. , &a-1R&a+25V*p+0X*[id number]*c202B*c15G*c2P*p-0X&a-25V&a+1R Name: Zena Schusterbelen Chirinos : 1935 F80 MedRec: [id number] AcctNum: [id number] Prepared: SatFeb 21, 2016 20:10 by Interface Page 11 of 12 pMD [facility] EMERGENCY RECORD Troponin I Less than 0.010 ng/mL, Range (< 0.028), Reference Range , 0.00 - 0.028 ng/mL Negative 0.029 - 0.29 ng/mL , Indeterminate Greater or Equal to 0.3 ng/mL Strongly suggests ND , . (17:58 [facility]) Sanchez: ASA=KACIE Carias, May [facility]=MD Xenia, Julito LGIB=KACIE Gonzales, Iza &a-1R&a+25V*p+0X*e2187O*c202B*c15G*c2P*p-0X&a-25V&a+1R Name: Kennyseun Haleigh : 1935 F80 MedRec: [id number] AcctNum: [id number] Prepared: SatFeb 21, 2016 20:10 by Interface Page 12 of 12 pMD MTDD
== END 2016-02-21 18:18 | disposition home or self-care (01) ==
LOC: BURERS 15:17
DX: J44.1 Chronic obstructive pulmonary disease with (acute) exacerbation (principal); F41.9 Anxiety disorder, unspecified; F17.210 Nicotine dependence, cigarettes, uncomplicated; E03.9 Hypothyroidism, unspecified; Z90.710 Acquired absence of both cervix and uterus
CPT/HCPCS: 36415; 71010; 80053; 81001; 82553; 83880; 84484; 85025; 85379; 85610; 85730; 93005; 94640; 94760; 96374; J2930; J7620

== ENCOUNTER 2016-11-01 09:33 | Outpatient (CLI) | payer MEDICARE ==
[2016-11-01 11:50] LABS: #Basophils 0.1 thou/uL (0.0-0.2); #Eosinphils 0.2 thou/uL (0.0-0.7); #Lymphocytes 4.7 thou/uL (1.20-3.40); #Monocytes 0.8 thou/uL (0.11-0.59); #Neutrophils 6.2 thou/uL (1.40-6.50); %Basophils 0.9 % (0.0-1.0); %Eosinophils 1.6 % (0.0-10.0); %Lymphocytes 39.2 % (21.0-51.0); %Monocytes 6.8 % (0.0-10.0); %Neutrophils 51.5 % (42.0-75.0); Mean Corpuscular HGB CONC 34.4 g/dL (32.0-36.0); Mean Corpuscular Hemoglobin 33.3 pg (27.0-31.0); Mean Corpuscular Volume 96.6 fl (81.0-99.0); Mean Platelet Volume 7.4 fL (7.4-10.4); Platelet Count 241 thou/uL (130-400); RBC Distribution Width 11.7 % (11.5-14.5); Red Blood Cell (RBC) Count 4.51 mill/uL (4.20-5.40); White Blood Cell (WBC) Count 12.1 thou/uL (4.8-10.8)
[2016-11-01 11:53] LABS: ALT (SGPT) 27 U/L (8-55); AST (SGOT) 25 U/L (5-34); Albumin 4.3 g/dL (3.4-4.8); Alkaline Phosphatase 86 U/L (40-150); Anion Gap 15 mmol/L (10-20); BUN (Urea Nitrogen) 12 mg/dL (9.8-20.1); Bilirubin, Total 0.6 mg/dL (0.2-1.2); Calc. Creatinine Clearance 0 mL/min (70-130); Calcium 9.2 mg/dL (7.8-10.44); Carbon Dioxide 27 mmol/L (23-31); Cardiac Risk 2.8 (Less than 4.5); Chloride 103 mmol/L (98-107); Cholesterol 186 mg/dl (< 200 Desired); Estimated GFR-MDRD 71; Globulin 2.4 g/dL (2.4-3.5); Glucose 81 mg/dL (83-110); HDL Cholesterol 66 mg/dL (>60 Neg Risk); LDL Cholesterol, Calculated 93 mg/dL; Potassium 4.3 mmol/L (3.5-5.1); Protein, Total 6.7 g/dL (6.0-8.3); Sodium 141 mmol/L (136-145); Triglycerides 134 mg/dL (Less than 150)
[2016-11-01 12:16] LABS: Free T4 (Free Thyroxine) 1.37 ng/dL (0.70-1.48); Thyroid Stimulating Hormone 0.8366 uIU/mL (0.35-4.94)
== END 2016-11-01 09:34 | disposition home or self-care (01) ==
LOC: HPCALD 09:33
PROVIDERS: ATTEND Family Medicine
DX: E03.9 Hypothyroidism, unspecified (principal); E78.00 Pure hypercholesterolemia, unspecified; I10 Essential (primary) hypertension
CPT/HCPCS: 36415; 80053; 80061; 84439; 84443; 85025

== ENCOUNTER 2018-12-29 11:35 | Outpatient (CLI) | payer MEDICARE ==
--- NOTE | 2018-12-29 19:38 | RAD ---
CHEST TWO VIEWS: Date: 12-29-18 FINDINGS: Comparison is made with the 02-21-16 portable film. The heart remains normal in size. COPD is noted with flattening of the diaphragm but no lobar infiltr ate or effusion was seen. The mediastinum was unremarkable. Calcification is seen in the aortic arch. IMPRESSION: COPD but no acute findings. POS: HOME
== END 2018-12-29 11:36 | disposition home or self-care (01) ==
LOC: BURRAD 11:35
PROVIDERS: ATTEND Family Medicine
DX: J44.9 Chronic obstructive pulmonary disease, unspecified (principal)
CPT/HCPCS: 71046

== ENCOUNTER 2019-01-05 10:54 | Outpatient (CLI) | payer MEDICARE ==
--- NOTE | 2019-01-05 18:17 | RAD ---
LUMBAR SPINE THREE VIEWS: 01/05/2019 COMPARISON: 08/20/2013 FINDINGS: Mild anterolisthesis of L5 on S1 is about the same as before, probably due to facet arthritis. The kingsley felix are mildly osteopenic. The superior endplate of L4 seems a little more irregular today than befor e. I cannot exclude pathology here, but the area is not seen well enough to be certain. The appearanc e is such that I would strongly suggest considering an elective CT scan to investigate the vertebrae at this location. The remainder of the spine appears intact. The SI joints are symmetrical. Aortic ca lcification is seen distally. IMPRESSION: Questionable irregularity of the superior endplate of L4 compared to 2013. This is not seen adequatel y, particularly given the osteopenia present. I do feel the finding is enough to warrant either a CT or an MRI to investigate it better, to see if there is a fracture or other pathology here. CODE T POS: HOME
== END 2019-01-05 10:55 | disposition home or self-care (01) ==
LOC: BURRAD 10:54
PROVIDERS: ATTEND Family Medicine
DX: M54.5 Low back pain (principal)
CPT/HCPCS: 72100

== ENCOUNTER 2019-01-16 08:55 | Outpatient (CLI) | payer MEDICARE ==
--- NOTE | 2019-01-16 15:05 | CT ---
CT OF THE CHEST AND ABDOMEN AND PELVIS WITH CONTRAST: DATE: 01/16/2019. FINDINGS: Spiral CT of the chest, abdomen, and pelvis was done in response to a recent lumbar MRI which showed multiple bony lesions, as well as evidence of multiple hepatic masses. CT of the thorax shows a mass is present associated with the medial part of the superior segment of t he left lower lobe. It is located immediately behind the descending thoracic aorta and just lateral to the thoracic spine. It measures about 3 cm in size. A portion of the tissue of the mass extends up into the left hilum, so involves some of the lymph nodes there. I do not see significant adenopat hy on the right side of the chest. Otherwise, the lungs are clear. I do not see multiple nodules th roughout the lungs elsewhere. There are no effusions. There are several instances throughout the th oracic region where there are some lucencies scattered throughout the thoracic vertebrae and a few sc lerotic areas. These findings suggest diffuse metastatic disease. CT of the abdomen shows hepatic enlargement with too many to count masses of varying sizes. Again, m etastatic disease seems likely. There is a small 1.7 cm cystic area in the spleen. Most often this is a benign finding, such as a splenic cyst. In view of the other findings, one cannot exclude a met astasis. I do not see adrenal masses; however, there are an abundance of abdominal nodes that are en larged. These are primarily in the paraaortic and pericaval regions extending from the celiac region down through the bifurcation. While nodes are enlarged on both sides, there seems to be more of a p redominance of nodes on the left paraaortic regions than elsewhere. The kidneys showed no mass or hy dronephrosis. The abdominal aorta is normal in caliber. The pancreas appeared normal. There is no distention of bowel to suggest obstruction and no bowel wall thickening of concern. The gastric wall did not seem thick. No free air or free fluid was present. A moderate amount of fecal material is present, particularly in the right colon. Diverticulosis is prominent in the sigmoid reg ion. CT of the pelvis shows no free fluid, gross mass, or inflammatory change. There are some spotty luce ncies in the bony pelvis as well as several lumbar vertebrae consistent with metastatic disease. The most notable lesion was in the vertebral body of L4 corresponding with the area questioned on recent plain radiographs. IMPRESSION: 1. 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 2. Prominent abdominal adenopathy, especially in the periaortic and pericaval regions. 3. A 3 cm mass in the medial left lung adjacent to the spine and just behind the descending thoracic aorta. There is extension into the left hilum. Thoracic vertebrae involvement by tumor is suggeste d as well. No significant vertebral compressions were seen on this exam. CODE T POS: HOME
== END 2019-01-16 08:56 | disposition home or self-care (01) ==
LOC: BURCT 08:55
PROVIDERS: ATTEND Family Medicine
DX: C79.9 Secondary malignant neoplasm of unspecified site (principal); R59.0 Localized enlarged lymph nodes; R91.8 Other nonspecific abnormal finding of lung field; M48.8X4 Other specified spondylopathies, thoracic region
CPT/HCPCS: 71260; 74177